=== PATIENT | female | born 1955 | race Caucasian/White ===

== ENCOUNTER 2021-07-31 20:23 | Emergency (ER) | payer MEDICAID ==
[~2021-07-31] VITALS: Ht 154.9 cm; Wt 81.8 kg
[2021-07-31 21:40] VITALS: BP 151/76
[2021-07-31 22:49] LABS: BASOPHILS % (AUTO) 0.7 % (0.0-2.0); EOSINOPHILS % (AUTO) 3.1 % (1.0-6.0); HEMATOCRIT 27.6 % (36-46); HEMOGLOBIN 8.1 g/dL (12.0-16.0); LYMPHOCYTES # (AUTO) 1.6 K/uL (1.0-4.8); LYMPHOCYTES % (AUTO) 24.4 % (22.0-44.0); MEAN CORPUSCULAR HEMOGLOBIN 20.5 pg (26.0-34.0); MEAN CORPUSCULAR HGB CONC 29.5 G/dL (31.0-37.0); MEAN CORPUSCULAR VOLUME 70 fL (80-100); MONOCYTES # (AUTO) 0.9 K/uL (0.1-1.0); MONOCYTES % (AUTO) 14.1 % (2.0-9.0); NEUTROPHILS # (AUTO) 3.7 K/uL (1.8-7.7); NEUTROPHILS % (AUTO) 57.7 % (40.0-70.0); PLATELET COUNT (AUTO) 177 K/uL (150-450); RED BLOOD CELL COUNT(AUTO) 3.97 MIL/uL (4.00-5.20)
[2021-07-31 23:01] LABS: ANION GAP 10 mmol/L (8-16); CALCIUM, TOTAL 8.5 mg/dL (8.8-10.5); CARBON DIOXIDE 24 mmol/L (22-29); CHLORIDE 103 mmol/L (98-107); CREATININE 0.43 mg/dL (0.60-1.30); GLUCOSE,RANDOM 85 mg/dL (70-110); POTASSIUM 3.2 mmol/L (3.5-5.1); SODIUM SERUM 137 mmol/L (136-145); UREA NITROGEN, BLOOD 5 mg/dL (7-18)
[2021-07-31 23:03] LABS: INR 1.2 (0.9-1.1); PROTHROMBIN TIME 13.1 SEC (9.4-11.6)
[2021-07-31 23:05] LABS: GLOMERULAR FILTR. RATE CALC > 60 mL/min (>60)
[2021-07-31 23:09] LABS: ALANINE AMINOTRANSFERASE 24 U/L (12-78); ALKALINE PHOSPHATASE 109 U/L (46-116); ASPARTATE AMINOTRANSFERASE 40 U/L (15-37); B-TYPE NATRIURETIC PEPTIDE 155 pg/mL (0-100); BILIRUBIN,TOTAL 1.1 mg/dL (0.1-1.0); CREATINE KINASE, TOTAL ONLY 214 U/L (26-192)
[2021-08-01] MEDS ORDERED: FUROSEMIDE 20 MG TABLET PO ONE (01:30)
== END 2021-08-01 01:39 | disposition left against medical advice (07) ==
LOC: EMS 20:29
DX: I50.9 Heart failure, unspecified (principal)
CPT/HCPCS: 71111; 80053; 82550; 83880; 84484; 85025; 85610; 85730; 93005; 99285